=== PATIENT | female | born 1960 | race Caucasian/White ===

== ENCOUNTER 2017-08-24 08:56 | Inpatient (IN) | payer MEDICAID, OTHER ==
[~2017-08-24] VITALS: Ht 162.6 cm; Wt 74.0 kg
[2017-08-24 10:22] LABS: BASOPHILS % (AUTO) 0.7 % (0-1); EOSINOPHILS # (AUTO) 0.2 X10'3 (0-0.9); EOSINOPHILS % (AUTO) 2.7 % (0-6); HEMATOCRIT 40.3 % (35.0-45.0); HEMOGLOBIN 14.1 g/dl (12.0-16.0); LYMPHOCYTES # (AUTO) 1.7 X10'3 (1.1-4.8); LYMPHOCYTES % (AUTO) 25.5 % (21-51); MEAN CORPUSCULAR HEMOGLOBIN 33.4 PG (27.0-31.0); MEAN CORPUSCULAR HGB CONC 34.9 % (33.0-36.5); MEAN CORPUSCULAR VOLUME 95.7 FL (78-98); MEAN PLATELET VOLUME 7.9 FL (7.4-10.4); MONOCYTES # (AUTO) 0.5 X10'3 (0-0.9); NEUTROPHILS # (AUTO) 4.2 X10'3 (1.8-7.7); NEUTROPHILS % (AUTO) 64.1 % (42-75); PLATELET COUNT 233 X10'3 (140-440); RED BLOOD COUNT 4.21 X10'6 (4.20-5.60); RED CELL DISTRIBUTION WIDTH 14.2 % (11.5-14.5); WHITE BLOOD COUNT 6.5 X10'3 (4.5-11.0)
[2017-08-24 10:38] LABS: ALANINE AMINOTRANSFERASE 26 U/L (12-78); ALBUMIN 3.4 G/DL (3.4-5.0); ALKALINE PHOSPHATASE 82 IU/L (46-116); ANION GAP 10 (8-16); ASPARTATE AMINO TRANSFERASE 17 U/L (10-37); BILIRUBIN,TOTAL 0.5 MG/DL (0.1-1.0); BLOOD UREA NITROGEN 9 MG/DL (7-18); BUN/CREATININE RATIO 10.6 (6.6-38.0); CALCIUM 9.1 MG/DL (8.5-10.1); CHLORIDE 107 MMOL/L (99-107); CREATININE 0.85 MG/DL (0.40-0.90); GLUCOSE 102 MG/DL (70-104); POTASSIUM 3.8 MMOL/L (3.5-5.1); SODIUM 142 MMOL/L (135-145); TOTAL CARBON DIOXIDE 24.8 MMOL/L (24-32); TOTAL PROTEIN 6.7 G/DL (6.4-8.2); eGFR 69 ML/MIN
[2017-08-24 11:19] LABS: CLARITY,URINE SLIGHTLY CLOUDY (Clear); COLOR,URINE STRAW (Yellow); GLUCOSE, URINE NEGATIVE (Neg); KETONES,URINE NEGATIVE (Neg); LEUKOCYTE ESTERASE ,URINE NEGATIVE (Neg); NITRITES, URINE NEGATIVE (Neg); OCCULT BLOOD,URINE TRACE-INTACT (Neg); PROTEIN,URINE NEGATIVE (Neg); UROBILINOGEN,URINE 0.2 E.U/dL (0.2-1.0)
[2017-08-24 11:20] LABS: UA COLLECTION TYPE CLN CATCH MIDSTREAM
[2017-08-24 11:28] LABS: SQUAMOUS EPITHELIAL CELL,UR FEW /LPF (FEW)
[2017-08-24 11:29] LABS: BACTERIA,URINE 2+ /HPF (Neg); RBC,URINE 0-2 /HPF (0-2); WBC,URINE 0-4 /HPF (0-4)
[2017-08-24] MEDS ORDERED: mag hydrox/Alum hydrox/simeth 30ml oral suspension PO PRN (11:50)
[2017-08-24] MEDS ORDERED: magnesium hydroxide 30ml (MOM) UD suspension PO PRN (11:50)
[2017-08-24] MEDS ORDERED: ondansetron/PF 4mg/2ml inj IV PRN (11:50)
[2017-08-24] MEDS ORDERED: IBUP-1984 PO (14:40)
[2017-08-24] MEDS ORDERED: TRAM50TA2 PO (14:40)
[2017-08-24] MEDS ORDERED: NORMAL SALINE IV ONE ×2 (15:50→16:25)
[2017-08-24] MEDS ORDERED: CALCIUM CHLORIDE IV ONE (15:50)
[2017-08-24] MEDS ORDERED: calcium chloride inj. 2,000 MG in normal saline 250ml IV soln 250 ML IV ONE (15:50)
[2017-08-24] MEDS ORDERED: acetaminophen 325mg tablet PO PRN (15:50)
[2017-08-24] MEDS ORDERED: hydrocortisone sod succ/PF 100mg/2ml inj. IV PRN (15:50)
[2017-08-24] MEDS ORDERED: diphenhydrAMINE 25mg capsule PO PRN (15:50)
[2017-08-24] MEDS ORDERED: ALBUMIN 5% IV ONE (15:50)
[2017-08-24] MEDS ORDERED: citrate dextrose 1000ml IV sol 1,000 ML HE ONE (15:50)
[2017-08-24] MEDS ORDERED: traMADol 50MG tablet PO PRN (16:50)
[2017-08-24] MEDS: ibuprofen tablet 400 MG TABLET PO PRN (17:08)
[2017-08-24 18:00] VITALS: BP 124/65
[2017-08-24] MEDS: traMADol 50MG tablet PO PRN ×2 (18:47→22:48)
[2017-08-24 22:00] VITALS: BP 117/64
[2017-08-25] VITALS (8 sets, daily range): BP systolic 113–127; BP diastolic 64–77
[2017-08-25] MEDS: ibuprofen tablet 400 MG TABLET PO PRN ×3 (00:11→17:43)
[2017-08-25] MEDS: traMADol 50MG tablet PO PRN ×3 (03:53→21:36)
[2017-08-25 05:23] LABS: BASOPHILS # (AUTO) 0.1 X10'3 (0-0.2); BASOPHILS % (AUTO) 0.9 % (0-1); EOSINOPHILS # (AUTO) 0.3 X10'3 (0-0.9); EOSINOPHILS % (AUTO) 4.3 % (0-6); HEMATOCRIT 39.3 % (35.0-45.0); HEMOGLOBIN 13.5 g/dl (12.0-16.0); LYMPHOCYTES # (AUTO) 2.1 X10'3 (1.1-4.8); LYMPHOCYTES % (AUTO) 34.6 % (21-51); MEAN CORPUSCULAR HEMOGLOBIN 32.6 PG (27.0-31.0); MEAN CORPUSCULAR HGB CONC 34.4 % (33.0-36.5); MEAN CORPUSCULAR VOLUME 94.7 FL (78-98); MEAN PLATELET VOLUME 8.6 FL (7.4-10.4); MONOCYTES # (AUTO) 0.5 X10'3 (0-0.9); MONOCYTES % (AUTO) 7.9 % (2-12); NEUTROPHILS # (AUTO) 3.2 X10'3 (1.8-7.7); NEUTROPHILS % (AUTO) 52.3 % (42-75); PLATELET COUNT 213 X10'3 (140-440); RED BLOOD COUNT 4.15 X10'6 (4.20-5.60); RED CELL DISTRIBUTION WIDTH 14.3 % (11.5-14.5); WHITE BLOOD COUNT 6.2 X10'3 (4.5-11.0)
[2017-08-25 05:37] LABS: PARTIAL THROMBOPLASTIN TIME 26 SECONDS (22-32); PROTHROMBIN TIME 9.9 SECONDS (9.0-12.0)
[2017-08-25 05:57] LABS: ALANINE AMINOTRANSFERASE 25 U/L (12-78); ALBUMIN 3.3 G/DL (3.4-5.0); ALBUMIN/GLOBULIN RATIO 1.1 (1.1-1.5); ALKALINE PHOSPHATASE 81 IU/L (46-116); ANION GAP 11 (8-16); ASPARTATE AMINO TRANSFERASE 19 U/L (10-37); BILIRUBIN,TOTAL 0.4 MG/DL (0.1-1.0); BLOOD UREA NITROGEN 10 MG/DL (7-18); BUN/CREATININE RATIO 11.2 (6.6-38.0); CALCIUM 8.8 MG/DL (8.5-10.1); CHLORIDE 106 MMOL/L (99-107); CREATININE 0.89 MG/DL (0.40-0.90); GLUCOSE 110 MG/DL (70-104); MAGNESIUM 1.7 MG/DL (1.5-2.4); PHOSPHORUS 3.7 MG/DL (2.3-4.5); POTASSIUM 3.8 MMOL/L (3.5-5.1); SODIUM 142 MMOL/L (135-145); TOTAL CARBON DIOXIDE 25.5 MMOL/L (24-32); TOTAL PROTEIN 6.4 G/DL (6.4-8.2); eGFR 65 ML/MIN
[2017-08-25] MEDS ORDERED: normal saline 1000ml 1,000 ML IV SCH (08:39)
[2017-08-25] MEDS ORDERED: heparin 1,000 units/ml 10ml inj ICATH ONE (08:40)
[2017-08-25] MEDS ORDERED: LIDOcaine 1%/PF (10mg/ml) 5ml vial SQ ONE (08:40)
[2017-08-25] MEDS ORDERED: LIDOcaine 1% (10mg/ml) 2ml vial SQ ONE (08:50)
[2017-08-25] MEDS ORDERED: LIDOcaine 1%/PF (10mg/ml) 5ml vial ONE (08:54)
[2017-08-25] MEDS ORDERED: CALCIUM CHLORIDE IV ONE ×2 (09:00→16:50)
[2017-08-25] MEDS ORDERED: NORMAL SALINE IV ONE (09:00)
[2017-08-25] MEDS ORDERED: ALBUMIN 5% IV ONE ×2 (09:00→16:50)
[2017-08-25] MEDS ORDERED: citrate dextrose 1000ml IV sol 1,000 ML HE ONE ×2 (09:00→16:50)
[2017-08-25] MEDS ORDERED: calcium chloride inj. 2,000 MG in normal saline 250ml IV soln 250 ML IV ONE ×2 (09:00→16:50)
[2017-08-25] MEDS ORDERED: heparin 1,000unit/ml 10ml vial 10 ML ONE (09:09)
[2017-08-25] MEDS ORDERED: hydrocortisone sod succ/PF 100mg/2ml inj. IV PRN (16:50)
[2017-08-25] MEDS ORDERED: diphenhydrAMINE 25mg capsule PO PRN (16:50)
[2017-08-26] MEDS: ibuprofen tablet 400 MG TABLET PO PRN ×3 (02:04→18:51)
[2017-08-26] MEDS: traMADol 50MG tablet PO PRN ×3 (02:05→18:51)
[2017-08-26 05:35] LABS: BASOPHILS # (AUTO) 0.1 X10'3 (0-0.2); BASOPHILS % (AUTO) 0.6 % (0-1); EOSINOPHILS # (AUTO) 0.2 X10'3 (0-0.9); EOSINOPHILS % (AUTO) 2.9 % (0-6); HEMATOCRIT 42.2 % (35.0-45.0); HEMOGLOBIN 14.6 g/dl (12.0-16.0); LYMPHOCYTES # (AUTO) 2.1 X10'3 (1.1-4.8); LYMPHOCYTES % (AUTO) 25.5 % (21-51); MEAN CORPUSCULAR HGB CONC 34.5 % (33.0-36.5); MEAN CORPUSCULAR VOLUME 95.5 FL (78-98); MEAN PLATELET VOLUME 8.1 FL (7.4-10.4); MONOCYTES # (AUTO) 0.6 X10'3 (0-0.9); MONOCYTES % (AUTO) 7.5 % (2-12); NEUTROPHILS # (AUTO) 5.1 X10'3 (1.8-7.7); NEUTROPHILS % (AUTO) 63.5 % (42-75); PLATELET COUNT 202 X10'3 (140-440); RED BLOOD COUNT 4.42 X10'6 (4.20-5.60); RED CELL DISTRIBUTION WIDTH 14.1 % (11.5-14.5); WHITE BLOOD COUNT 8.1 X10'3 (4.5-11.0)
[2017-08-26 05:42] LABS: INR 1.1 INR; PARTIAL THROMBOPLASTIN TIME 30 SECONDS (22-32); PROTHROMBIN TIME 11.2 SECONDS (9.0-12.0)
[2017-08-26 05:59] LABS: ALANINE AMINOTRANSFERASE 17 U/L (12-78); ALBUMIN 3.3 G/DL (3.4-5.0); ALBUMIN/GLOBULIN RATIO 1.9 (1.1-1.5); ALKALINE PHOSPHATASE 50 IU/L (46-116); ANION GAP 8 (8-16); ASPARTATE AMINO TRANSFERASE 11 U/L (10-37); BILIRUBIN,TOTAL 0.5 MG/DL (0.1-1.0); BLOOD UREA NITROGEN 10 MG/DL (7-18); BUN/CREATININE RATIO 10.4 (6.6-38.0); CALCIUM 8.2 MG/DL (8.5-10.1); CHLORIDE 109 MMOL/L (99-107); CREATININE 0.96 MG/DL (0.40-0.90); GLUCOSE 135 MG/DL (70-104); MAGNESIUM 1.6 MG/DL (1.5-2.4); PHOSPHORUS 3.8 MG/DL (2.3-4.5); POTASSIUM 4.3 MMOL/L (3.5-5.1); SODIUM 141 MMOL/L (135-145); TOTAL CARBON DIOXIDE 24.2 MMOL/L (24-32); eGFR 60 ML/MIN
[2017-08-26 06:00] VITALS: BP 108/75
[2017-08-26] MEDS ORDERED: citrate dextrose 1000ml IV sol 1,000 ML HE ONE (08:45)
[2017-08-26] MEDS ORDERED: ALBUMIN 5% IV ONE (08:45)
[2017-08-26] MEDS ORDERED: CALCIUM CHLORIDE IV ONE (08:45)
[2017-08-26 10:00] VITALS: BP 127/76
[2017-08-26] MEDS ORDERED: NORMAL SALINE IV SCH (16:50)
[2017-08-26 18:00] VITALS: BP 108/70
[2017-08-26 22:00] VITALS: BP 104/61
[2017-08-27] MEDS: ibuprofen tablet 400 MG TABLET PO PRN ×3 (01:29→22:38)
[2017-08-27] MEDS: traMADol 50MG tablet PO PRN ×3 (01:30→20:19)
[2017-08-27 06:00] VITALS: BP 117/74
[2017-08-27 06:31] LABS: BASOPHILS % (AUTO) 0.4 % (0-1); EOSINOPHILS # (AUTO) 0.2 X10'3 (0-0.9); EOSINOPHILS % (AUTO) 2.7 % (0-6); HEMATOCRIT 44.3 % (35.0-45.0); HEMOGLOBIN 15.1 g/dl (12.0-16.0); LYMPHOCYTES # (AUTO) 2.2 X10'3 (1.1-4.8); LYMPHOCYTES % (AUTO) 25.5 % (21-51); MEAN CORPUSCULAR HEMOGLOBIN 32.9 PG (27.0-31.0); MEAN CORPUSCULAR HGB CONC 34.1 % (33.0-36.5); MEAN CORPUSCULAR VOLUME 96.5 FL (78-98); MEAN PLATELET VOLUME 7.9 FL (7.4-10.4); MONOCYTES # (AUTO) 0.7 X10'3 (0-0.9); MONOCYTES % (AUTO) 8.1 % (2-12); NEUTROPHILS # (AUTO) 5.5 X10'3 (1.8-7.7); NEUTROPHILS % (AUTO) 63.3 % (42-75); PLATELET COUNT 180 X10'3 (140-440); RED BLOOD COUNT 4.59 X10'6 (4.20-5.60); RED CELL DISTRIBUTION WIDTH 14.4 % (11.5-14.5); WHITE BLOOD COUNT 8.8 X10'3 (4.5-11.0)
[2017-08-27 06:40] LABS: INR 1.1 INR; PARTIAL THROMBOPLASTIN TIME 30 SECONDS (22-32); PROTHROMBIN TIME 11.2 SECONDS (9.0-12.0)
[2017-08-27 06:51] LABS: ALANINE AMINOTRANSFERASE 11 U/L (12-78); ALBUMIN 3.2 G/DL (3.4-5.0); ALBUMIN/GLOBULIN RATIO 2.1 (1.1-1.5); ALKALINE PHOSPHATASE 37 IU/L (46-116); ANION GAP 6 (8-16); ASPARTATE AMINO TRANSFERASE 14 U/L (10-37); BILIRUBIN,TOTAL 0.2 MG/DL (0.1-1.0); BLOOD UREA NITROGEN 13 MG/DL (7-18); BUN/CREATININE RATIO 12.5 (6.6-38.0); CALCIUM 8.2 MG/DL (8.5-10.1); CHLORIDE 111 MMOL/L (99-107); CREATININE 1.04 MG/DL (0.40-0.90); GLUCOSE 101 MG/DL (70-104); MAGNESIUM 1.4 MG/DL (1.5-2.4); PHOSPHORUS 4.1 MG/DL (2.3-4.5); POTASSIUM 4.5 MMOL/L (3.5-5.1); SODIUM 143 MMOL/L (135-145); TOTAL CARBON DIOXIDE 25.9 MMOL/L (24-32); TOTAL PROTEIN 4.7 G/DL (6.4-8.2); eGFR 55 ML/MIN
[2017-08-27] MEDS ORDERED: calcium chloride inj. 2,000 MG in normal saline 250ml IV soln 250 ML IV ONE (10:20)
[2017-08-27] MEDS ORDERED: hydrocortisone sod succ/PF 100mg/2ml inj. IV PRN (10:20)
[2017-08-27] MEDS ORDERED: dextrose 5% water 500ml 500 ML IV ONE (10:20)
[2017-08-27] MEDS ORDERED: diphenhydrAMINE 50 mg/ml inj IV PRN (10:20)
[2017-08-27] MEDS ORDERED: diphenhydrAMINE 25mg capsule PO PRN (10:20)
[2017-08-27 12:57] VITALS: BP 108/71
[2017-08-27] MEDS ORDERED: potassium Cl 20 mEq SR tablet PO PRN ×2 (14:30)
[2017-08-27] MEDS ORDERED: magnesium Cl slow-release 64mg tablet PO PRN (14:30)
[2017-08-27] MEDS ORDERED: potassium Cl 40MEQ/NS 500ml 500 ML IV PRN ×2 (14:30)
[2017-08-27 19:00] VITALS: BP 120/78
[2017-08-27 22:00] VITALS: BP 109/70
[2017-08-28] MEDS: traMADol 50MG tablet PO PRN ×4 (02:46→23:54)
[2017-08-28 05:37] LABS: BASOPHILS % (AUTO) 0.6 % (0-1); EOSINOPHILS # (AUTO) 0.2 X10'3 (0-0.9); EOSINOPHILS % (AUTO) 2.7 % (0-6); HEMATOCRIT 40.6 % (35.0-45.0); HEMOGLOBIN 13.9 g/dl (12.0-16.0); LYMPHOCYTES # (AUTO) 1.9 X10'3 (1.1-4.8); LYMPHOCYTES % (AUTO) 25.2 % (21-51); MEAN CORPUSCULAR HEMOGLOBIN 32.6 PG (27.0-31.0); MEAN CORPUSCULAR HGB CONC 34.2 % (33.0-36.5); MEAN CORPUSCULAR VOLUME 95.3 FL (78-98); MEAN PLATELET VOLUME 8.1 FL (7.4-10.4); MONOCYTES # (AUTO) 0.6 X10'3 (0-0.9); MONOCYTES % (AUTO) 7.6 % (2-12); NEUTROPHILS # (AUTO) 4.7 X10'3 (1.8-7.7); NEUTROPHILS % (AUTO) 63.9 % (42-75); PLATELET COUNT 154 X10'3 (140-440); RED BLOOD COUNT 4.26 X10'6 (4.20-5.60); RED CELL DISTRIBUTION WIDTH 13.7 % (11.5-14.5); WHITE BLOOD COUNT 7.4 X10'3 (4.5-11.0)
[2017-08-28 05:56] LABS: ALANINE AMINOTRANSFERASE 17 U/L (12-78); ALBUMIN 3.1 G/DL (3.4-5.0); ALBUMIN/GLOBULIN RATIO 1.6 (1.1-1.5); ALKALINE PHOSPHATASE 48 IU/L (46-116); ANION GAP 7 (8-16); ASPARTATE AMINO TRANSFERASE 17 U/L (10-37); BILIRUBIN,TOTAL 0.3 MG/DL (0.1-1.0); BLOOD UREA NITROGEN 9 MG/DL (7-18); BUN/CREATININE RATIO 10.3 (6.6-38.0); CALCIUM 8.2 MG/DL (8.5-10.1); CHLORIDE 111 MMOL/L (99-107); CREATININE 0.87 MG/DL (0.40-0.90); GLUCOSE 98 MG/DL (70-104); MAGNESIUM 1.7 MG/DL (1.5-2.4); PHOSPHORUS 3.5 MG/DL (2.3-4.5); POTASSIUM 4.2 MMOL/L (3.5-5.1); SODIUM 143 MMOL/L (135-145); TOTAL CARBON DIOXIDE 25.3 MMOL/L (24-32); eGFR 67 ML/MIN
[2017-08-28 06:00] VITALS: BP 163/73
[2017-08-28] MEDS ORDERED: NORMAL SALINE IV SCH (09:00)
[2017-08-28] MEDS ORDERED: CALCIUM CHLORIDE IV ONE (09:00)
[2017-08-28] MEDS ORDERED: ALBUMIN 5% IV ONE (09:00)
[2017-08-28] MEDS ORDERED: citrate dextrose 1000ml IV sol 1,000 ML HE ONE (09:00)
[2017-08-28 10:00] VITALS: BP 114/79
[2017-08-28] MEDS: ibuprofen tablet 400 MG TABLET PO PRN ×2 (15:55→23:55)
[2017-08-28 19:00] VITALS: BP 123/84
[2017-08-28 22:30] VITALS: BP 114/64
[2017-08-29] MEDS: traMADol 50MG tablet PO PRN ×3 (04:08→12:33)
[2017-08-29 05:25] LABS: BASOPHILS % (AUTO) 0.6 % (0-1); EOSINOPHILS # (AUTO) 0.2 X10'3 (0-0.9); EOSINOPHILS % (AUTO) 2.8 % (0-6); HEMATOCRIT 41.2 % (35.0-45.0); HEMOGLOBIN 14.1 g/dl (12.0-16.0); LYMPHOCYTES # (AUTO) 2.3 X10'3 (1.1-4.8); LYMPHOCYTES % (AUTO) 28.2 % (21-51); MEAN CORPUSCULAR HEMOGLOBIN 32.8 PG (27.0-31.0); MEAN CORPUSCULAR HGB CONC 34.2 % (33.0-36.5); MEAN CORPUSCULAR VOLUME 95.8 FL (78-98); MEAN PLATELET VOLUME 8.8 FL (7.4-10.4); MONOCYTES # (AUTO) 0.5 X10'3 (0-0.9); MONOCYTES % (AUTO) 6.4 % (2-12); NEUTROPHILS # (AUTO) 5.1 X10'3 (1.8-7.7); PLATELET COUNT 133 X10'3 (140-440); RED CELL DISTRIBUTION WIDTH 14.3 % (11.5-14.5); WHITE BLOOD COUNT 8.2 X10'3 (4.5-11.0)
[2017-08-29 05:40] LABS: INR 1.1 INR; PROTHROMBIN TIME 11.2 SECONDS (9.0-12.0)
[2017-08-29 05:51] LABS: ALANINE AMINOTRANSFERASE 15 U/L (12-78); ALBUMIN/GLOBULIN RATIO 2.3 (1.1-1.5); ALKALINE PHOSPHATASE 28 IU/L (46-116); ANION GAP 8 (8-16); ASPARTATE AMINO TRANSFERASE 10 U/L (10-37); BILIRUBIN,TOTAL 0.4 MG/DL (0.1-1.0); BLOOD UREA NITROGEN 10 MG/DL (7-18); BUN/CREATININE RATIO 12.2 (6.6-38.0); CHLORIDE 113 MMOL/L (99-107); CREATININE 0.82 MG/DL (0.40-0.90); GLUCOSE 102 MG/DL (70-104); MAGNESIUM 1.5 MG/DL (1.5-2.4); PHOSPHORUS 3.3 MG/DL (2.3-4.5); POTASSIUM 3.9 MMOL/L (3.5-5.1); SODIUM 144 MMOL/L (135-145); TOTAL CARBON DIOXIDE 22.7 MMOL/L (24-32); TOTAL PROTEIN 4.3 G/DL (6.4-8.2); eGFR 72 ML/MIN
[2017-08-29 06:00] VITALS: BP 109/65
[2017-08-29 10:00] VITALS: BP 115/78
[2017-08-29] MEDS: ibuprofen tablet 400 MG TABLET PO PRN (12:33)
== END 2017-08-29 15:17 | disposition home or self-care (01) | DRG 40 ==
LOC: ER 08:57 → ED HOLD 11:47 → ORTHO 4S 15:45
PROC: 0JH60XZ Insertion of Tunneled Vascular Access Device into Chest Subcutaneous Tissue and Fascia, Open Approach (ICD-10-PCS; 2017-08-24)
PROC: 02HV33Z Insertion of Infusion Device into Superior Vena Cava, Percutaneous Approach (ICD-10-PCS; 2017-08-24)
PROC: B548ZZA Ultrasonography of Superior Vena Cava, Guidance (ICD-10-PCS; 2017-08-24)
PROC: 6A551Z3 Pheresis of Plasma, Multiple (ICD-10-PCS; principal; 2017-08-25)
DX: G37.3 Acute transverse myelitis in demyelinating disease of central nervous system (principal); H46.9 Unspecified optic neuritis; H54.7 Unspecified visual loss; R20.0 Anesthesia of skin; R26.0 Ataxic gait; Z88.0 Allergy status to penicillin; Z88.6 Allergy status to analgesic agent; Z88.8 Allergy status to other drugs, medicaments and biological substances
CPT/HCPCS: 36415; 36558; 70551; 72141; 72146; 74176; 76937; 77001; 80053; 81001; 83735; 84100; 84145; 85025; 85610; 85651; 85730; 86140; 87070; 90935; 97161; 97530; 99285; A9270; C1750; C1894; J1644; J1720; J2001; J7030; J7060; P9045